=== PATIENT | female | born 1965 | race Caucasian/White ===

== ENCOUNTER 2017-03-05 16:56 | Emergency (ER) | payer MEDICAID, OTHER ==
[~2017-03-05] VITALS: Ht 152.4 cm; Wt 71.0 kg
[2017-03-05 17:07] VITALS: Ht 152.4 cm; Wt 71.0 kg
--- NOTE | 2017-03-05 17:54 | ERA ---
ER Documentation Chief Complaint Date/Time DATE: 03/05/17 TIME: 17:54 Chief Complaint headache HPI The patient is a 51-year-old female, presenting with headache, facial pain, nasal congestion, nasal discharge for the last couple days. The symptoms are worse today. He denies syncope, near syncope, neck pain, chest pain, dyspnea, abdominal pain, vomiting, dysuria, diarrhea. She does not smoke nor drink Past medical history: Hypertension, chronic right knee pain Past surgical history: None ROS All systems reviewed and are negative except as per history of present illness. Medications Home Meds Active Scripts Hydrocodone/Acetaminophen (Bowers 5-325 Tablet) 1 Each Tablet, 1 TAB PO Q6H Y for PAIN, #7 TAB Prov:CATHI MORENO MD 03/05/17 Azithromycin* (Zithromax*) 250 Mg Tablet, 250 MG PO .ZPACK DIRECTED, #6 TAB TAKE 500 MG (2 TABS) THE FIRST DAY THEN 250 MG (1 TAB) DAYS 2-5 Prov:CATHI MORENO MD 03/05/17 Allergies Allergies: Coded Allergies: No Known Allergy (Unverified , 03/05/17) PMhx/Soc History of Surgery: Yes (Gall Bladder, ) Anesthesia Reaction: No Hx Neurological Disorder: No Hx Respiratory Disorders: No Hx Cardiac Disorders: No Hx Psychiatric Problems: No Hx Miscellaneous Medical Probl: No Hx Alcohol Use: No Hx Substance Use: No Hx Tobacco Use: No Physical Exam Vitals Vital Signs Date Time Temp Pulse Resp B/P Pulse Ox O2 Delivery O2 Flow Rate FiO2 03/05/17 17:07 97.2 55 20 156/85 98 Physical Exam Const: No acute distress. Head: Atraumatic. Eyes: Normal Conjunctiva. ENT: Normal External Ears, Nose and Mouth. Bilateral frontal and maxillary sinus tenderness, bilateral tympanic membranes are within normal limit Neck: Full range of motion. No meningismus. Resp: Clear to auscultation bilaterally. Cardio: Regular rate and rhythm, no murmurs. Abd: Soft, non distended, normal bowel sounds, non tender. Skin: No petechiae or rashes. Back: No midline or flank tenderness. Ext: No cyanosis, or edema. Neur: Awake and alert. No focal deficit Psych: Normal Mood and Affect. Procedures/MDM MEDICAL MAKING DECISION: The patient is a 51-year-old female, presenting with acute sinusitis, acute sinus headache. The differential diagnoses considered include but are not limited to subarachnoid hemorrhage, occult trauma, CVA, meningitis, encephalitis, hypertension, tension, migraine, cluster, narcotic withdrawal, cervical spine disease. Departure Diagnosis: Primary Impression: Sinusitis Additional Impression: Sinus headache Condition: Good Comments She was discharged with Zithromax and Bowers I discussed the findings with the patient. I advised the patient to follow-up with the primary physician in about 1-2 days, sooner if needed and return if any concern. CATHI MORENO MD Mar 05, 2017 17:54
[2017-03-05] MEDS ORDERED: AZIT250T94 PO (18:12)
[2017-03-05] MEDS ORDERED: HYDR-906 PO (18:13)
== END 2017-03-05 18:45 | disposition home or self-care (01) ==
LOC: FTE 16:56
DX: J32.9 Chronic sinusitis, unspecified (principal)
CPT/HCPCS: 99284

== ENCOUNTER 2018-01-21 09:32 | Day surgery (SDC) | END 2018-01-21 12:34 | disposition home or self-care (01) ==

== ENCOUNTER 2019-03-30 16:39 | Emergency (ER) | payer MEDICAID, OTHER ==
[~2019-03-30] VITALS: Ht 154.9 cm; Wt 66.0 kg
[~2019-03-30 16:39] MED LIST: atenolol PO
[2019-03-30 16:43] VITALS: Ht 154.9 cm; Wt 66.0 kg
--- NOTE | 2019-03-30 16:50 | ERD ---
ER Documentation Chief Complaint Chief Complaint LAKE X THIS MORNING. DIZZINESS AND BLURRY VISION. HPI The patient is a 53-year-old female, presenting to the ER because of acute occipital headache that began around 7 AM this morning when she woke up. She also complains of somewhat blurry vision, she is under a lot of stress, bloated mostly mucus, nonbilious/non-bloody. Denies fever, chills, neck pain, chest pain, dyspnea, abdominal pain, dysuria, diarrhea. She does not smoke nor drink Past medical history: GERD, gastritis, hemorrhoids, anxiety Past surgical history: Cholecystectomy, hysterectomy, polypectomy. She had EGD and colonoscopy in January 2018 ROS All systems reviewed and are negative except as per history of present illness. Medications Home Meds Discontinued Reported Medications [atenolol] No Conflict Check, PO DAILY 01/21/18 Allergies Allergies: Coded Allergies: No Known Allergy (Unverified , 03/30/19) PMhx/Soc History of Surgery: Yes (cholecystectomy, hysterectomy) Anesthesia Reaction: No Hx Neurological Disorder: No Hx Respiratory Disorders: No Hx Cardiac Disorders: No Hx Psychiatric Problems: No Hx Miscellaneous Medical Probl: No Hx Alcohol Use: No Hx Substance Use: No Hx Tobacco Use: No Physical Exam Vitals Vital Signs Date Temp Pulse Resp B/P (MAP) Pulse Ox O2 O2 Flow FiO2 Time Delivery Rate 03/30/19 98.7 62 22 130/94 100 Room Air 19:32 (106) 72 03/30/19 98.7 72 20 142/87 100 Room Air 18:48 (105) 03/30/19 78 16 141/93 96 Room Air 18:26 (109) 03/30/19 62 14 142/75 100 Room Air 18:00 (97) 03/30/19 77 17 135/73 100 Room Air 16:50 (93) 03/30/19 97.0 92 24 148/106 99 16:43 (120) Physical Exam Const: No acute distress. Head: Atraumatic. Eyes: Normal Conjunctiva. ENT: Normal External Ears, Nose and Mouth. Neck: Full range of motion. No meningismus. Resp: Clear to auscultation bilaterally. Cardio: Regular rate and rhythm. Abd: Soft, non distended, normal bowel sounds, non tender. Skin: No petechiae or rashes. Back: No midline or flank tenderness. Ext: No cyanosis, or edema. Neur: Awake and alert. No focal deficit Psych: Anxious Result Diagram: 03/30/19 1710 03/30/19 1710 Results 24 hrs Laboratory Tests Test 03/30/19 17:10 White Blood Count 13.1 10^3/ul Red Blood Count 4.72 10^6/ul Hemoglobin 13.6 g/dl Hematocrit 41.3 % Mean Corpuscular Volume 87.5 fl Mean Corpuscular Hemoglobin 28.8 pg Mean Corpuscular Hemoglobin Concent 32.9 g/dl Red Cell Distribution Width 12.7 % Platelet Count 251 10^3/UL Mean Platelet Volume 10.1 fl Immature Granulocytes % 0.300 % Neutrophils % 80.0 % Lymphocytes % 13.9 % Monocytes % 5.3 % Eosinophils % 0.2 % Basophils % 0.3 % Nucleated Red Blood Cells % 0.0 /100WBC Immature Granulocytes # 0.040 10^3/ul Neutrophils # 10.5 10^3/ul Lymphocytes # 1.8 10^3/ul Monocytes # 0.7 10^3/ul Eosinophils # 0.0 10^3/ul Basophils # 0.0 10^3/ul Nucleated Red Blood Cells # 0.0 10^3/ul Prothrombin Time 13.5 Sec Prothrombin Time Ratio 1.1 INR International Normalized Ratio 1.02 Activated Partial Thromboplast Time 32.2 Sec Sodium Level 139 mmol/L Potassium Level 5.1 mmol/L Chloride Level 106 mmol/L Carbon Dioxide Level 22 mmol/L Anion Gap 11 Blood Urea Nitrogen 10 mg/dl Creatinine 0.53 mg/dl Est Glomerular Filtrat Rate mL/min > 60 mL/min Glucose Level 180 mg/dl Calcium Level 8.8 mg/dl Current Medications Medications Dose Sig/Wilfred Start Time Status Last (Trade) Ordered Route PRN Stop Time Admin Dose Reason Admin Alprazolam 0.5 mg ONCE ONCE 03/30/19 DC 03/30/19 (Xanax) PO 17:00 17:11 03/30/19 17:02 Ondansetron 4 mg ONCE STAT 03/30/19 DC 03/30/19 HCl (Zofran IV 17:00 17:11 Inj) 03/30/19 17:02 Morphine 2 mg ONCE STAT 03/30/19 DC 03/30/19 Sulfate IV 17:52 17:56 (morphine) 03/30/19 17:53 Nimodipine 60 mg ONCE ONCE 03/30/19 DC 03/30/19 (Nimotop) PO 19:00 18:58 03/30/19 19:01 Procedures/[place] [id number] Radiology Main Line: [phone] DIAGNOSTIC IMAGING REPORT Patient: GARY [address] : 1965 Age: 53 Sex: F MR #: [id number] DOS: 03/30/19 1700 Ordering MD: CATHI MORENO MD Location: E/R Room/Bed: PROCEDURE: CT HEAD NON CONTRAST CLINICAL INDICATION: Headache TECHNIQUE: Utilizing the multi-slice spiral CT scanner, multiple images were obtained through the brain without intravenous contrast. Automatic exposure control was utilized as dose lowering technique.DICOM images available One of more of the following dose reduction techniques were utilized: -automatic exposure control.-adjustment of the mA and/or kV according to patient size. - Use of iterative reconstruction technique. Radiation Dose: CTDI is 36.21 mGy. DLP is 634.23 mGy-cm. COMPARISON: None FINDINGS: Study is remarkable for abnormal high density in the basal cisterns, sylvian fissure. There is greater hemorrhage noted in the right temporal and parietal lobes and the sylvian fissure compared to the left suggesting this may be deci ded of ruptured aneurysm or AV malformation. Ventricular system is intact although small in caliber. Soni-white differentiation is still seen. No midline shift or acute extra-axial collection noted. No abnormal calcifications seen. Brain stem and posterior fossa appears intact. Bony calvarium and overlying soft tissues appear unremarkable. IMPRESSION: Moderate to large subarachnoid hemorrhage, larger in the right sylvian fissure which may be the site of ruptured aneurysm or malformation. Findings reported to Dr. Moreno at 06:28 p.m. IF FURTHER WORKUP IS DESIRED, FOLLOW-UP MRI MAY BE HELPFUL. RPTAT: AAOO Physician Nancy Date Time Electronically viewed and signed by Physician Nancy on 03/30/2019 18:27 MB/ CC: CATHI MORENO MD [phone] EKG: Read by emergency physician Rate/Rhythm: Normal Sinus Rhythm 80 beats/min QRS, ST, T-waves: No ST elevation, no T inversion, prolonged QT Impression: Abnormal EKG MEDICAL MAKING DECISION: The patient is a 53-year-old female, presenting with acute subarachnoid hemorrhage, prolonged QT syndrome. She was treated with Xanax 0.5 mg p.o. q. anxiety, Zofran 4 mg IV for nausea and morphine 2 mg IV for headache, amlodipine 60 mg p.o. for her acute subarachnoid hemorrhage The differential diagnoses considered include but are not limited to subarachnoid hemorrhage, occult trauma, CVA, meningitis, encephalitis, hypertension, tension, migraine, cluster, narcotic withdrawal, cervical spine disease. Consultation: I discussed the patient with the stroke neurologist Dr. Marshall from [facility] at 6:35 PM, who was made aware of the lab, the treatment, the patient condition condition and he accepted the patient. Critical Care: Time: 35 minutes excluding all billable procedures. Treatments/Evaluations: Close monitoring and treatment of unstable vital si gns, cardiorespiratory, and neurologic status, while maintaining tight balance of fluid, respiratory, and cardiac interventions. Departure Diagnosis: Primary Impression: Subarachnoid hemorrhage Additional Impression: Prolonged QT interval Condition: Critical Comments The patient's blood pressure was elevated (>120/80) but appears stable without evidence of hypertension emergency or urgency. The patient was counseled about the risks of hypertension and urged to pursue outpatient monitoring and therapy within a week with their primary care physician. I discussed the findings with the patient. I discussed the patient with Dr Rodriguez , who was made aware of the lab, the treatment, the patient condition. The patient is transferred to [facility] via ambulance Disclaimer: Inadvertent spelling and grammatical errors are likely due to EHR/dictation software use and do not reflect on the overall quality of patient care. Also, please note that the electronic time recorded on this note does not necessarily reflect the actual time of the patient encounter. CATHI MORENO MD March 30, 2019 16:50
[2019-03-30] MEDS ORDERED: ONDANSETRON 4 MG INJ IV STA (17:00)
[2019-03-30] MEDS ORDERED: ALPRAZOLAM 0.25 MG TAB PO ONE (17:00)
[2019-03-30] MEDS ORDERED: morphine 2 MG INJ IV STA (17:52)
[2019-03-30 19:32] VITALS: BP 130/94; PULSE 72; RESP 22
== END 2019-03-30 19:44 | disposition short-term general hospital (02) ==
LOC: E/R 16:39
DX: I60.9 Nontraumatic subarachnoid hemorrhage, unspecified (principal); I45.81 Long QT syndrome; R40.2142 Coma scale, eyes open, spontaneous, at arrival to emergency department; R40.2362 Coma scale, best motor response, obeys commands, at arrival to emergency department; R40.2252 Coma scale, best verbal response, oriented, at arrival to emergency department
CPT/HCPCS: 36415; 70450; 80048; 85025; 85610; 85730; 93005; 96374; 96375; J2270; J2405; Z7502; Z7610